=== PATIENT | male | born 1990 | race Caucasian/White ===

== ENCOUNTER 2019-07-11 13:57 | Emergency (ER) | payer SELFPAY ==
[2019-07-11] MEDS: ONDANSETRON (ODT) 4 MG TAB ODT (14:54)
[2019-07-11] MEDS: HYDROCODONE/APAP (5/325) TAB PO (14:54)
[2019-07-11] MEDS: DIPHTH/TET/ACEL PERTUSS (ADULT) 0.5 ML VIAL IM* (14:55)
== END 2019-07-11 16:12 | disposition home or self-care (01) ==
LOC: FTE 13:57
DX: S02.2XXA Fracture of nasal bones, initial encounter for closed fracture (principal); W01.0XXA Fall on same level from slipping, tripping and stumbling without subsequent striking against object, initial encounter; Y92.89 Other specified places as the place of occurrence of the external cause; Z23 Encounter for immunization
CPT/HCPCS: 70160; 90471; 90715; 99283-25